=== PATIENT | female | born 1950 | race Caucasian/White ===

== ENCOUNTER 2019-06-12 19:55 | Emergency (ER) | payer OTHER ==
[~2019-06-12] VITALS: Ht 157.5 cm; Wt 90.9 kg
[2019-06-12] MEDS: IV NORMAL SALINE 1000ML BAG 1,000 ML IV SCH (20:17)
--- NOTE | 2019-06-12 20:22 | PHYS DOC ---
General Adult EDM: Chief Complaint: ABDOMINAL PAIN HPI: HPI: Patient is a 69 year old female who presents with complaint of lower abdominal pain for the last couple of days. Patient has had a little bit of nausea but no vomiting. She did have 1 loose stool. Patient rates the pain at a 9 out of 10. She denies any alleviating factors. She states that pain is worsened with palpation. Patient denies any cough, shortness of breath or fever.[] Review of Systems: Review of Systems: Constitutional: Denies fever or chills. [] Respiratory: Denies cough or shortness of breath. [] Cardiovascular: Denies chest pain or edema. [] GI: Complains of lower abdominal pain with nausea. Denies vomiting. Complains of one episode of diarrhea. [] Neurologic: Denies headache, focal weakness or sensory changes. [] A full 10 point review of systems has been reviewed and is otherwise negative. Heart Score: Risk Factors: Risk Factors: DM, Current or recent (<one month) smoker, HTN, HLP, family history of CAD, obesity. Risk Scores: Score 0 - 3: 2.5% MACE over next 6 weeks - Discharge Home Score 4 - 6: 20.3% MACE over next 6 weeks - Admit for Clinical Observation Score 7 - 10: 72.7% MACE over next 6 weeks - Early Invasive Strategies Physical Exam: PE: Constitutional: Well developed, well nourished, no acute distress, non-toxic appearance. [] HENT: Normocephalic, atraumatic, bilateral external ears normal, oropharynx moist, no oral exudates, nose normal. [] Eyes: PERRLA, EOMI, conjunctiva normal, no discharge. [] Neck: Normal range of motion, no tenderness, supple, no stridor. [] Cardiovascular:Heart rate regular rhythm, no murmur [] Lungs & Thorax: Bilateral breath sounds clear to auscultation [] Abdomen: Bowel sounds normal, soft, with diffuse tenderness. [] Skin: Warm, dry, no erythema, no rash. [] Extremities: No tenderness, no cyanosis, no clubbing, ROM intact. [] Neurologic: Alert and oriented X 3, no focal deficits noted. [] EKG: EKG: [] Radiology/Procedures: Radiology/Procedures: [] Impression: PROCEDURE: CT ABDOMEN PELVIS WO CONTRAST CT Abdomen and Pelvis without contrast History: Lower abdominal pain Technique: Noncontrast CT imaging was performed of the abdomen and pelvis. Multiplanar images are reviewed. Exposure: One or more of the following individualized dose reduction techniques were utilized for this examination: 1. Automated exposure control 2. Adjustment of the mA and/or kV according to patient size 3. Use of iterative reconstruction technique. Comparison: None Findings: There is mild left hydroureteronephrosis. There is a large approximate 15.3 cm transverse by 12.6 cm AP by about 14.6 cm lesion in the pelvis with superior extent to the abdomen, inferior extent near the right adnexal region and superior margin of the uterine fundus. Internal density measurements are about 25 Hounsfield units. There is nonspecific retroperitoneal nodes such as lateral to the abdominal aorta aorta on the left about 1.2 cm short axis dimension. There are also some nodes of the iliac chains bilaterally, largest on the right about 1.8 cm short axis dimension. Renal to further characterize, there is appearance of round density in the left parasagittal pelvis image 165 series 2 on the order of about 3 cm in size concerning for a mass. There is moderate to large hiatal hernia containing most of the stomach. There are some small noncalcified right lower lobe, largest 0.6 cm. There is lingular noncalcified nodule about 1.2 cm. There is small left lower lobe pulmonary nodule about 0.5 cm image 34. Accurate evaluation of abdominal visceral organs is limited without intravenous contrast. There is heterogeneity of the liver concerning for underlying masses. There has been cholecystectomy. There is no adrenal nodularity. Accurate evaluation of bowel is limited without oral contrast. There is no significant free air, free fluid, bowel dilatation. There is scattered colonic diverticulosis greatest descending and sigmoid colon, wall thickening of the proximal to mid sigmoid colon not excluded on this exam. There is some fat in the inguinal canals bilaterally, no internal bowel. There is multilevel facet degenerative change. There is multilevel thoracolumbar degenerative disc disease. Impression: 1. There is a very large, probably slightly complex cystic lesion in the pelvis extending near the adnexal region and superior fundal margin. Primary concern would be for cystic ovarian neoplasm such as cystadenocarcinoma. There is some nonspecific retroperitoneal lymphadenopathy and also along iliac chains greater on the right, neoplasm in the differential. There is diffuse heterogeneity of liver concerning for underlying hepatic masses/metastatic disease. There is also round mass in the left pelvis which could arise from adjacent distal sigmoid colon or in the mesentery. There are noncalcified nodules of the lung bases bilaterally, concerning for pulmonary metastases given the other findings present. 2. There is colonic diverticulosis. Sigmoid colonic wall thickening is possible although difficult to further characterize. Findings could be related to inflammatory change such as from diverticulitis although mass is not excluded. 3. There is hiatal hernia. Electronically signed by: Khoi Camacho MD (06/12/2019 10:38 PM) [facility] DICTATED and SIGNED BY: KHOI CAMACHO MD DATE: 06/12/192237 Course & Med Decision Making: Course & Med Decision Making Pertinent Labs and Imaging studies reviewed. (See chart for details) [] Berny Disclaimer: Berny Disclaimer: This electronic medical record was generated, in whole or in part, using a voice recognition dictation system. Departure Departure Impression: Primary Impression: Pelvic mass Disposition: 02 TRANSFER [facility] Condition: IMPROVED Referrals: UNKNOWN PCP NAME (PCP) DAVID ISSA Jr. DO Jun 12, 2019 20:22
[2019-06-12 20:30] LABS: BILIRUBIN,URINE SMALL (NEG); CLARITY,URINE CLEAR; COLOR,URINE YELLOW; NITRITE,URINE NEGATIVE (NEG); PROTEIN,URINE 30 mg/dL (NEG-TRACE)
[2019-06-12 20:41] LABS: BACTERIA,URINE FEW /HPF (0-FEW); SQUAMOUS EPITHELIAL CELL,UR FEW /LPF
[2019-06-12] MEDS: ONDANSETRON PF 4 MG/2 ML VIAL. IVP ONE (20:43)
[2019-06-12] MEDS: fentaNYL PF VIAL 100 MCG/2 ML VIAL IV PRN (20:44)
[2019-06-12 21:09] LABS: BASO % 1 % (0-3); EOS # 0.1 x10^3/uL (0.0-0.7); EOS % 1 % (0-3); HEMATOCRIT 23.1 % (36.0-47.0); HEMOGLOBIN 7.5 g/dL (12.0-15.5); LYMPH # 0.7 x10^3/uL (1.0-4.8); LYMPH % 13 % (24-48); MEAN CORPUSCULAR HEMOGLOBIN 24 pg (25-35); MEAN CORPUSCULAR HGB CONC 32 g/dL (31-37); MEAN CORPUSCULAR VOLUME 73 fL (79-100); MONO # 0.7 x10^3/uL (0.0-1.1); MONO % 14 % (0-9); NEUT # 3.8 x10^3/uL (1.8-7.7); NEUT % 72 % (31-73); PLATELET COUNT 298 x10^3/uL (140-400); RED BLOOD COUNT 3.17 x10^6/uL (3.50-5.40); RED CELL DISTRIBUTION WIDTH 15.7 % (11.5-14.5); WHITE BLOOD COUNT 5.3 x10^3/uL (4.0-11.0)
[2019-06-12 21:18] LABS: CALCIUM 8.1 mg/dL (8.5-10.1); CREATININE 1.3 mg/dL (0.6-1.0); GFR 40.9; POTASSIUM 3.3 mmol/L (3.5-5.1)
[2019-06-12 21:25] LABS: ALBUMIN 2.5 g/dL (3.4-5.0); ALBUMIN/GLOBULIN RATIO 0.7 (1.0-1.7); TOTAL BILIRUBIN 0.5 mg/dL (0.2-1.0); TOTAL PROTEIN 6.2 g/dL (6.4-8.2)
--- NOTE | 2019-06-12 22:41 | RAD ---
CT Abdomen and Pelvis without contrast History: Lower abdominal pain Technique: Noncontrast CT imaging was performed of the abdomen and pelvis. Multiplanar images are reviewed. Exposure: One or more of the following individualized dose reduction techniques were utilized for this examination: 1. Automated exposure control 2. Adjustment of the mA and/or kV according to patient size 3. Use of iterative reconstruction technique. Comparison: None Findings: There is mild left hydroureteronephrosis. There is a large approximate 15.3 cm transverse by 12.6 cm AP by about 14.6 cm lesion in the pelvis with superior extent to the abdomen, inferior extent near the right adnexal region and superior margin of the uterine fundus. Internal density measurements are about 25 Hounsfield units. There is nonspecific retroperitoneal nodes such as lateral to the abdominal aorta aorta on the left about 1.2 cm short axis dimension. There are also some nodes of the iliac chains bilaterally, largest on the right about 1.8 cm short axis dimension. Renal to further characterize, there is appearance of round density in the left parasagittal pelvis image 165 series 2 on the order of about 3 cm in size concerning for a mass. There is moderate to large hiatal hernia containing most of the stomach. There are some small noncalcified right lower lobe, largest 0.6 cm. There is lingular noncalcified nodule about 1.2 cm. There is small left lower lobe pulmonary nodule about 0.5 cm image 34. Accurate evaluation of abdominal visceral organs is limited without intravenous contrast. There is heterogeneity of the liver concerning for underlying masses. There has been cholecystectomy. There is no adrenal nodularity. Accurate evaluation of bowel is limited without oral contrast. There is no significant free air, free fluid, bowel dilatation. There is scattered colonic diverticulosis greatest descending and sigmoid colon, wall thickening of the proximal to mid sigmoid colon not excluded on this exam. There is some fat in the inguinal canals bilaterally, no internal bowel. There is multilevel facet degenerative change. There is multilevel thoracolumbar degenerative disc disease. Impression: 1. There is a very large, probably slightly complex cystic lesion in the pelvis extending near the adnexal region and superior fundal margin. Primary concern would be for cystic ovarian neoplasm such as cystadenocarcinoma. There is some nonspecific retroperitoneal lymphadenopathy and also along iliac chains greater on the right, neoplasm in the differential. There is diffuse heterogeneity of liver concerning for underlying hepatic masses/metastatic disease. There is also round mass in the left pelvis which could arise from adjacent distal sigmoid colon or in the mesentery. There are noncalcified nodules of the lung bases bilaterally, concerning for pulmonary metastases given the other findings present. 2. There is colonic diverticulosis. Sigmoid colonic wall thickening is possible although difficult to further characterize. Findings could be related to inflammatory change such as from diverticulitis although mass is not excluded. 3. There is hiatal hernia. Electronically signed by: Alessandro Medina MD (06/12/2019 10:38 PM) [facility]
[2019-06-13 00:04] VITALS: BP 140/65
== END 2019-06-13 00:06 | disposition short-term general hospital (02) ==
LOC: ER 19:55
DX: R19.07 Generalized intra-abdominal and pelvic swelling, mass and lump (principal); R19.7 Diarrhea, unspecified; K44.9 Diaphragmatic hernia without obstruction or gangrene
CPT/HCPCS: 36415; 74176; 80053; 81001; 83690; 85025; 87086; 96361; 96374; 96375; 99285; J2405; J3010; J7030